=== PATIENT | female | born 1985 | race Caucasian/White ===

== ENCOUNTER 2017-11-01 21:27 | Emergency (ER) | payer OTHER, MEDICAID ==
[~2017-11-01] VITALS: Ht 165.1 cm; Wt 58.5 kg
[~2017-11-01 21:27] MED LIST: AMOXICILLIN 50500 MG; AMOXICILLIN875 MG PO; APAP500 PO; AUGMENTIN 500-1 EACH PO; AZITHROMYCIN 2250 MG PO; BACTRIM DS TAB1 EACH PO; BIRTH CONTROL PO; CLEOCIN HCL150 MG PO; CLEOCIN HCL300 MG PO; DIFLUCAN150 MG PO; FLAGYL500 MG; FLAGYL500 MG PO; HYDROCODON-ACE1 EAC7 PO; HYDROCODONE-AP1 EAC6 PO; IBUPROFEN 600600 M1 PO; IBUPROFEN 800800 M1 PO; KEFLEX500 M1 PO; LIDOCAINE VISC100 M1 SWISH&SPIT; LIDOCAINE VISC100 ML SWISH&SPIT; NAPROSYN500 MG PO; NOHOMEMEDICATIONS; NORCO 5-325 TA1 EACH PO; PENICILLIN V P500 MG PO; PEPCID20 MG PO; ROBAXIN 750 MG750 M1 PO; TRINATE TABLET1 TAB PO; TYLENOL EXTRA500 MG PO
[2017-11-01] MEDS ORDERED: CLEOCIN HCL150 MG PO (22:11)
[2017-11-01] MEDS ORDERED: NORCO 5-325 TA1 EACH PO (22:11)
[2017-11-01 22:30] VITALS: BP 141/91
== END 2017-11-01 22:30 | disposition home or self-care (01) ==
LOC: M.ERS 21:27
DX: K02.9 Dental caries, unspecified (principal)

== ENCOUNTER 2017-11-08 16:43 | Emergency (ER) | payer OTHER, MEDICAID ==
[~2017-11-08] VITALS: Ht 165.1 cm; Wt 58.5 kg
[2017-11-08] MEDS ORDERED: HYDROXYZINE HCL25 M1 PO (16:55)
[2017-11-08] MEDS ORDERED: AMOXICILLIN 50500 MG PO (17:40)
[2017-11-08] MEDS ORDERED: DIFLUCAN150 MG PO (17:52)
[2017-11-08 18:09] VITALS: BP 133/90
== END 2017-11-08 18:10 | disposition home or self-care (01) ==
LOC: M.ERS 16:43
DX: K04.7 Periapical abscess without sinus (principal); F41.9 Anxiety disorder, unspecified; F43.10 Post-traumatic stress disorder, unspecified; Z86.14 Personal history of Methicillin resistant Staphylococcus aureus infection; Z87.891 Personal history of nicotine dependence

== ENCOUNTER 2017-12-03 12:22 | Emergency (ER) | payer OTHER, MEDICAID ==
[~2017-12-03] VITALS: Ht 170.2 cm; Wt 58.5 kg
[~2017-12-03 12:22] MED LIST changes: +AMOXICILLIN 50500 MG PO; +HYDROXYZINE HCL25 M1 PO
[2017-12-03] MEDS ORDERED: MOUTHPIECE1 EACH INH (13:07)
[2017-12-03] MEDS ORDERED: ZPAK PO (13:07)
[2017-12-03] MEDS ORDERED: PROAIR HFA8.5 GM INH (13:07)
[2017-12-03] MEDS ORDERED: ALBUTEROL2.5 MG/31 INH (13:07)
[2017-12-03 13:19] LABS: INFLUENZA A ANTIGEN None Detected (None Detect); INFLUENZA B ANTIGEN None Detected (None Detect)
[2017-12-03 13:22] VITALS: BP 139/69
== END 2017-12-03 13:22 | disposition home or self-care (01) ==
LOC: M.ERS 12:22
PROVIDERS: Nurse Practitioner Family
DX: J20.9 Acute bronchitis, unspecified (principal); R05 Cough; F41.9 Anxiety disorder, unspecified; F43.10 Post-traumatic stress disorder, unspecified; H92.09 Otalgia, unspecified ear

== ENCOUNTER 2018-06-16 18:53 | Emergency (ER) | payer OTHER, MEDICAID ==
[~2018-06-16] VITALS: Ht 165.1 cm; Wt 59.4 kg
[~2018-06-16 18:53] MED LIST changes: +ALBUTEROL2.5 MG/31 INH; +MOUTHPIECE1 EACH INH; +PROAIR HFA8.5 GM INH; +ZPAK PO
[2018-06-16] MEDS ORDERED: LEXAPRO 10 MG T10 M1 PO (19:11)
[2018-06-16] MEDS ORDERED: NAPROSYN500 M1 PO (20:06)
[2018-06-16 20:32] VITALS: BP 132/82
== END 2018-06-16 20:32 | disposition home or self-care (01) ==
LOC: M.ERS 18:53
DX: S90.31XA Contusion of right foot, initial encounter (principal); F41.9 Anxiety disorder, unspecified; Z86.14 Personal history of Methicillin resistant Staphylococcus aureus infection; Z87.891 Personal history of nicotine dependence; W20.8XXA Other cause of strike by thrown, projected or falling object, initial encounter; Y93.89 Activity, other specified; Y92.89 Other specified places as the place of occurrence of the external cause; Y99.8 Other external cause status

== ENCOUNTER 2018-10-09 13:21 | Emergency (ER) | payer OTHER, MEDICAID ==
[~2018-10-09] VITALS: Ht 162.6 cm; Wt 59.4 kg
[~2018-10-09 13:21] MED LIST changes: +LEXAPRO 10 MG T10 M1 PO; +NAPROSYN500 M1 PO
[2018-10-09] MEDS ORDERED: FLAGYL 250 MG250 MG PO (13:31)
[2018-10-09] MEDS ORDERED: LO LOESTRIN FE1 EACH PO (13:31)
[2018-10-09 13:40] LABS: ABSOLUTE EOSINOPHILS 0.1 thou/uL (0.0-0.7); ABSOLUTE LYMPHOCYTES 2.7 thou/uL (0.8-5.3); ABSOLUTE MONOCYTES 0.6 thou/uL (0.0-1.2); ABSOLUTE NEUTROPHILS 3.6 thou/uL (1.6-8.1); BASOPHILS 0.4 %; EOSINOPHILS 1.6 %; HEMATOCRIT 42.7 % (37.0-47.0); HEMOGLOBIN 14.7 gm/dL (12.0-15.0); LYMPHOCYTES 38.4 %; MCH 30.1 pg (26.0-34.0); MCHC 34.4 g/dL (28.0-37.0); MCV 87.4 fL (80.0-100.0); MONOCYTES 8.1 %; MPV 11.5 fl. (7.2-11.1); NUCLEATED RBCS 0 /100WBC; PLATELET COUNT* 182 thou/uL (150-400); POLYS 51.5 %; RBC 4.88 mil/uL (4.20-5.00); RDW-CV 12.5 % (10.5-14.5)
[2018-10-09 13:49] LABS: APTT 26.9 Seconds (25.0-31.3)
[2018-10-09 13:51] LABS: ANION GAP 11 mmol/L (7-16); BUN 7 mg/dL (7-18); CALCIUM 9.7 mg/dL (8.5-10.1); CHLORIDE 103 mmol/L (98-107); CO2 27 mmol/L (21-32); GLUCOSE 88 mg/dL (70-99); POTASSIUM 3.1 mmol/L (3.5-5.1); SODIUM 141 mmol/L (136-145)
[2018-10-09 14:07] LABS: ALBUMIN 4.4 g/dL (3.4-5.0); ALKALINE PHOSPHATASE 66 U/L (46-116); CK-MB MASS < 0.5 ng/mL (<0.5-3.6); LIPASE 137 U/L (73-393); NT-PRO BRAIN NAT PEPTIDE 79 pg/mL (<300); SGOT 14 U/L (15-37); SGPT 15 U/L (30-65); TOTAL BILIRUBIN 0.6 mg/dL (<0.1-1.0); TOTAL PROTEIN 8.6 g/dL (6.4-8.2); TROPONIN-I LEVEL <0.06 ng/mL (<0.06)
[2018-10-09 14:19] LABS: URINE BILIRUBIN NEGATIVE (Negative); URINE BLOOD NEGATIVE (Negative); URINE CLARITY CLEAR; URINE COLOR YELLOW; URINE GLUCOSE-RANDOM NEGATIVE (Negative); URINE KETONES NEGATIVE (Negative); URINE LEUKOCYTES-REFLEX NEGATIVE (Negative); URINE NITRITE-REFLEX NEGATIVE (Negative); URINE PROTEIN NEGATIVE (Negative); URINE UROBILINOGEN 0.2 E.U./dl (0.2-1.0)
[2018-10-09 14:26] LABS: AMP/METHAMP Negative (Negative); BARBITURATES Negative (Negative); BENZODIAZEPINES Negative (Negative); COCAINE Negative (Negative); METHADONE Negative (Negative); OPIATES Negative (Negative); PCP Negative (Negative); THC Negative (Negative)
[2018-10-09 14:43] VITALS: BP 113/71
--- NOTE | 2018-10-10 13:38 | EKG ---
[place] [address] ELECTROCARDIOGRAM REPORT Name: STEPHANE AYALA Room: [facility]#: [id number] Admission: 10/09/18 Attend Phys: Discharge: 10/09/18 Date of : 85 Report #: [id number] THIS REPORT FOR: //name// 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1985 Requested By: Matthew Cardona Order Number: [id number] MD: Gregory Heller Measurements Intervals [place] Rate: 112 P: 85 CO: 120 QRS: 50 QRSD: 89 T: -45 QT: 326 QTc: 445 Interpretive Statements Sinus tachycardia Borderline T abnormalities, inferior leads No previous ECG available for comparison Electronically Signed On 10-10-2018 13:37:51 TRACTOR TRAILER TECHNICIAN by Gregory Heller [email or web address] <ELECTRONICALLY SIGNED> By: Gregory Heller MD, [facility] 10/10/18 1337 1326 1326 Gregory Heller MD, FACC /EPI
== END 2018-10-09 14:43 | disposition home or self-care (01) ==
LOC: M.ERS 13:21
PROVIDERS: Family Medicine
DX: R00.2 Palpitations (principal); F41.9 Anxiety disorder, unspecified; Z86.14 Personal history of Methicillin resistant Staphylococcus aureus infection; Z87.891 Personal history of nicotine dependence; Z79.899 Other long term (current) drug therapy

== ENCOUNTER 2018-11-06 07:27 | Emergency (ER) | payer OTHER, MEDICAID ==
[~2018-11-06] VITALS: Ht 165.1 cm; Wt 59.4 kg
[~2018-11-06 07:27] MED LIST changes: +FLAGYL 250 MG250 MG PO; +LO LOESTRIN FE1 EACH PO
[2018-11-06 07:34] VITALS: BP 124/85
[2018-11-06] MEDS ORDERED: SERTRALINE HCL50 MG PO (07:38)
--- NOTE | 2018-11-06 12:32 | EKG ---
[place] [address] ELECTROCARDIOGRAM REPORT Name: STEPHANE AYALA Room: 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1985 Requested By: Matthew Cardona Order Number: [id number] [id number] MD: Gregory Heller Measurements Intervals [place] Rate: 79 P: 74 [place]: 138 QRS: 52 QRSD: 87 T: -1 QT: 386 QTc: 443 Interpretive Statements Sinus rhythm Borderline T abnormalities, inferior leads Compared to ECG 10/09/2018 13:26:06 Sinus tachycardia no longer present T-wave abnormality still present Electronically Signed On 11-06-2018 12:31:52 SOFTWARE CONTROLS ENGINEER by Gregory Heller [email or web address] <ELECTRONICALLY SIGNED> By: Gregory eHller MD, [facility] 11/06/18 1231 0733 Gregory Heller MD, FAC /EPI
[2018-11-07] MEDS ORDERED: AMITRIPTYLINE H25 M2 PO (03:19)
== END 2018-11-06 07:58 | disposition home or self-care (01) ==
LOC: M.ERS 07:27
DX: R00.2 Palpitations (principal); F41.9 Anxiety disorder, unspecified; Z86.14 Personal history of Methicillin resistant Staphylococcus aureus infection; Z87.891 Personal history of nicotine dependence

== ENCOUNTER 2018-11-07 02:00 | Emergency (ER) | payer OTHER, MEDICAID ==
[~2018-11-07] VITALS: Ht 165.1 cm; Wt 59.4 kg
[~2018-11-07 02:00] MED LIST changes: +SERTRALINE HCL50 MG PO
[2018-11-07] MEDS ORDERED: AMITRIPTYLINE H25 M2 PO (03:19)
[2018-11-07 03:29] LABS: ANION GAP 6 mmol/L (7-16); BUN 7 mg/dL (7-18); CHLORIDE 104 mmol/L (98-107); CO2 27 mmol/L (21-32); CREATININE 0.9 mg/dL (0.6-1.3); GLUCOSE 100 mg/dL (70-99); POTASSIUM 3.8 mmol/L (3.5-5.1); SODIUM 137 mmol/L (136-145)
[2018-11-07 03:35] VITALS: BP 99/58
[2018-11-07 03:36] LABS: ALBUMIN 3.5 g/dL (3.4-5.0); ALKALINE PHOSPHATASE 50 U/L (46-116); SGOT 12 U/L (15-37); SGPT 16 U/L (30-65); TOTAL BILIRUBIN 0.4 mg/dL (<0.1-1.0); TOTAL PROTEIN 6.7 g/dL (6.4-8.2); TROPONIN-I LEVEL <0.06 ng/mL (<0.06)
--- NOTE | 2018-11-07 15:41 | EKG ---
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1985 Requested By: Lesa Tomlinson Order Number: [id number] MD: Adolfo Sanchez Measurements Intervals [place] Rate: 84 P: 65 [place]: 131 QRS: 29 QRSD: 87 T: 15 QT: 361 QTc: 427 Interpretive Statements Sinus rhythm Borderline T abnormalities, inferior leads Baseline wander in lead(s) II,III,aVL,aVF Compared to ECG 11/06/2018 07:33:20 No significant changes Electronically Signed On 11-07-2018 15:41:05 HADOOP DEVELOPER by Adolfo Sanchez [email or web address] <ELECTRONICALLY SIGNED> By: Adolfo Sanchez MD, FAC 11/07/18 1541 [id number] Adolfo Sanchez MD, [facility] /EPI
== END 2018-11-07 03:35 | disposition home or self-care (01) ==
LOC: M.ERS 02:00
PROVIDERS: Personal Emergency Response Attendant
DX: I49.3 Ventricular premature depolarization (principal); F41.9 Anxiety disorder, unspecified; F43.10 Post-traumatic stress disorder, unspecified; Z86.14 Personal history of Methicillin resistant Staphylococcus aureus infection; Z87.891 Personal history of nicotine dependence

== ENCOUNTER 2019-02-22 09:31 | Emergency (ER) | payer OTHER, MEDICAID ==
[~2019-02-22] VITALS: Ht 165.1 cm; Wt 69.8 kg
[~2019-02-22 09:31] MED LIST changes: +AMITRIPTYLINE H25 M2 PO
[2019-02-22] MEDS ORDERED: VISTARIL 25 MG25 M1 PO (09:38)
[2019-02-22] MEDS ORDERED: LOPRESSOR50 PO (09:38)
[2019-02-22] MEDS ORDERED: NAPROSYN500 MG PO (10:12)
[2019-02-22] MEDS ORDERED: AMOXICILLIN 50500 MG PO (10:12)
[2019-02-22] MEDS ORDERED: ACETAMINOPHEN-1 EAC1 PO (10:12)
[2019-02-22 10:20] VITALS: BP 120/65
== END 2019-02-22 10:15 | disposition home or self-care (01) ==
LOC: M.ERS 09:31
DX: K08.89 Other specified disorders of teeth and supporting structures (principal); F41.9 Anxiety disorder, unspecified; Z87.891 Personal history of nicotine dependence

== ENCOUNTER 2019-04-13 13:31 | Emergency (ER) | payer OTHER, MEDICAID ==
[~2019-04-13] VITALS: Ht 165.1 cm; Wt 72.6 kg
[~2019-04-13 13:31] MED LIST changes: +ACETAMINOPHEN-1 EAC1 PO; +LOPRESSOR50 PO; +VISTARIL 25 MG25 M1 PO
[2019-04-13] MEDS ORDERED: NORCO 5-325 TA1 EAC1 PO (15:27)
[2019-04-13] MEDS ORDERED: IBUPROFEN 800800 M1 PO (15:27)
[2019-04-13 16:11] VITALS: BP 105/69
== END 2019-04-13 16:11 | disposition home or self-care (01) ==
LOC: M.ERS 13:31
DX: D17.24 Benign lipomatous neoplasm of skin and subcutaneous tissue of left leg (principal); M25.472 Effusion, left ankle; Z87.891 Personal history of nicotine dependence; F41.9 Anxiety disorder, unspecified; W18.49XA Other slipping, tripping and stumbling without falling, initial encounter; Y93.89 Activity, other specified; Y92.89 Other specified places as the place of occurrence of the external cause; Y99.8 Other external cause status

== ENCOUNTER 2019-11-10 11:58 | Emergency (ER) | payer OTHER, MEDICAID ==
[~2019-11-10] VITALS: Ht 165.1 cm; Wt 69.4 kg
[~2019-11-10 11:58] MED LIST changes: +NORCO 5-325 TA1 EAC1 PO
[2019-11-10] MEDS ORDERED: MELOXICAM15 MG PO (12:49)
[2019-11-10 13:16] VITALS: BP 118/70
== END 2019-11-10 13:18 | disposition home or self-care (01) ==
LOC: M.ERS 11:58
DX: S46.811A Strain of other muscles, fascia and tendons at shoulder and upper arm level, right arm, initial encounter (principal); Z86.14 Personal history of Methicillin resistant Staphylococcus aureus infection; Z87.891 Personal history of nicotine dependence; X50.9XXA Other and unspecified overexertion or strenuous movements or postures, initial encounter; Y93.89 Activity, other specified; Y92.89 Other specified places as the place of occurrence of the external cause; Y99.8 Other external cause status